=== PATIENT | female | born 1940 | race Caucasian/White ===

== ENCOUNTER 2019-01-19 09:20 | Emergency (ER) | payer OTHER ==
[2019-01-19 10:28] LABS: Absolute Lymphocytes (CBC) 1.2 K/uL (0.7-4.9); Basophils % 0.8 % (0-1.3); Eosinophils % 2.9 % (0-4.4); Hematocrit 46.6 % (36.0-45.0); Lymphocytes % 25.5 % (15.3-44.8); Monocytes % 10.2 % (3.3-12.3); RBC Red Blood Cell Count 4.89 M/uL (3.86-4.86)
[2019-01-19 10:43] LABS: Potassium 4.3 mmol/L (3.5-5.1)
[2019-01-19] MEDS ORDERED: MORPHINE 4 MG/ML SYR ONE (10:43)
[2019-01-19] MEDS ORDERED: ONDANSETRON 4 MG/2 ML VIAL ONE (10:43)
--- NOTE | 2019-01-19 11:07 | ER ---
Nurse's Notes [facility] Name: Loreta Whitaker Age: 78 yrs Sex: Female : 1940 Arrival Date: 01/19/2019 Time: 09:24 Bed 5 Private MD: Harvinder Dowling V Diagnosis: Umbilical hernia Presentation: 01/19 09:45 Onset of symptoms was January 19, 2019. Risk Assessment: Do you want to hurt yourself or ph someone else? Patient reports no desire to harm self or others. Initial Sepsis Screen: Does the patient meet any 2 criteria? No. Patient's initial sepsis screen is negative. Does the patient have a suspected source of infection? No. Patient's initial sepsis screen is negative. Care prior to arrival: None. 09:45 Acuity: LATOYA 3 ph 09:47 Presenting complaint: Patient states: pain radiating across lower abdomen X 10 days, iw feels a knot in mid abdomen. Transition of care: patient was not received from another setting of care. Onset of symptoms was January 12, 2019. Risk Assessment: Do you want to hurt yourself or someone else? Patient reports no desire to harm self or others. Initial Sepsis Screen: Does the patient meet any 2 criteria? No. Patient's initial sepsis screen is negative. Does the patient have a suspected source of infection? No. Patient's initial sepsis screen is negative. Care prior to arrival: None. 09:47 Method Of Arrival: Ambulatory iw 09:47 Acuity: LATOYA 3 iw Historical: - Allergies: 09:44 No Known Allergies; ph - Home Meds: 09:49 Synthroid Oral once daily [Active]; trazodone 100 mg Oral tab nightly [Active]; iw losartan 25 mg oral tab 1 tab once daily [Active]; - PMHx: 09:44 Hypertension; Hypothyroidism; ph 09:49 Diverticulitis; iw - PSHx: 09:49 Cholecystectomy; Knee surgery; colon resection; iw - Immunization history:: Adult Immunizations unknown. - Social history:: Smoking status: Patient/guardian denies using tobacco. - Ebola Screening: : No symptoms or risks identified at this time. Screenin:45 Abuse screen: Denies threats or abuse. Denies injuries from another. Nutritional ph screening: No deficits noted. Tuberculosis screening: No symptoms or risk factors identified. Fall Risk None identified. Assessment: 09:40 General: Appears in no apparent distress. comfortable, obese, Behavior is calm, ph cooperative, appropriate for age, Denies fever, feeling ill. Pain: Complains of pain in umbilical area. Neuro: Level of Consciousness is awake, alert, obeys commands, Oriented to person, place, time, situation. Cardiovascular: Capillary refill < 3 seconds in bilateral fingers Patient's skin is warm and dry. Respiratory: Airway is patent Respiratory effort is even, unlabored. GI: Abdomen is non-distended, obese, Bowel sounds present X 4 quads. Abd is soft X 4 quads Reports lower abdominal pain, Patient currently denies diarrhea, nausea, vomiting. : No signs and/or symptoms were reported regarding the genitourinary system. Derm: Skin is intact, is healthy with good turgor, Skin is pink, warm \T\ dry. Musculoskeletal: Circulation, motion, and sensation intact. Range of motion: intact in all extremities. 09:48 Reassessment: KAMERON Zhao at bedside to reduce hernia, successful reduction, pt iw tolerated well. 11:26 Reassessment: Patient appears in no apparent distress at this time. Patient and/or ph family updated on plan of care and expected duration. Pain level reassessed. Patient is alert, oriented x 3, equal unlabored respirations, skin warm/dry/pink. Pt d/c w/ abdominal binder in place, instructed to follow up w/ surgeon. Vital Signs: 09:43 BP 153 / 83; Pulse 64; Resp 18; Temp 98.2(TE); Pulse Ox 99% on R/A; Weight 111.13 kg; iw Height 5 ft. 6 in. (167.64 cm); Pain 6/10; 11:00 BP 163 / 78; Pulse 62; Resp 18; Temp 98.0; Pulse Ox 99% on R/A; ph 09:43 Body Mass Index 39.54 (111.13 kg, 167.64 cm) iw ED Course: 09:24 Patient arrived in ED. mr 09:24 Harvinder Dowling MD is Private Physician. mr 09:36 [facility]. kb 09:36 Kranthi Wolff MD is Attending Physician. kb 09:39 Loreta Simons, RN is Primary Nurse. ph 09:48 Triage completed. iw 09:48 Arm band placed on Patient placed in an exam room, on a stretcher. ph 09:48 Patient has correct armband on for positive identification. Placed in gown. Bed in low ph position. Call light in reach. Side rails up X 1. Pulse ox on. NIBP on. Door closed. Noise minimized. Warm blanket given. Head of bed elevated. 09:54 Initial lab(s) drawn, by me, sent to lab. Inserted saline lock: 20 gauge in right dh3 antecubital area, using aseptic technique. Blood collected. 11:01 Harvinder Dowling MD is Referral Physician. kb 11:01 Orlin Dailey MD is Referral Physician. kb 11:15 No provider procedures requiring assistance completed. IV discontinued, intact, ph bleeding controlled, No redness/swelling at site. Pressure dressing applied. Administered Medications: 10:36 Drug: Zofran 4 mg Route: IVP; Site: right antecubital; ph 11:01 Follow up: Response: No adverse reaction ph 10:39 Drug: morphine 4 mg Route: IVP; Site: right antecubital; ph 11:01 Follow up: Response: No adverse reaction; Pain is decreased ph 11:02 Not Given (pt would rather increase water intake): NS 0.9% 500 ml IV at bolus continuouskb Outcome: 11:01 Discharge ordered by MD. kb 11:27 Patient left the ED. ph 11:27 Discharged to home ambulatory, with friend. ph 11:27 Condition: good 11:27 Discharge instructions given to patient, Instructed on discharge instructions, follow up and referral plans. Demonstrated understanding of instructions, follow-up care. Signatures: Cece Bal, BENCH MOLDERAmandaC BENCH MOLDER-Natalie Espinosa Irene, RN SCOTTY Loreta Simons RN RN Carolyn Padilla [facility] Corrections: (The following items were deleted from the chart) 09:50 09:43 BP 153 / 83; Pulse 64bpm; Resp 20bpm; Pulse Ox 99% RA; ph iw
--- NOTE | 2019-01-19 11:10 | EDPHYS ---
Physician Documentation [facility] Name: Loreta Whitaker Age: 78 yrs Sex: Female : 1940 Arrival Date: 01/19/2019 Time: 09:24 Bed 5 Private MD: Harvinder Dowling V ED Physician Kranthi Wolff HPI: 01/19 10:02 This 78 yrs old Female presents to ER via Ambulatory with complaints of kb Abdominal Pain. 10:02 The patient presents with abdominal pain in the lower abdomen. Onset: The kb symptoms/episode began/occurred 2 week(s) ago. The symptoms do not radiate. Associated signs and symptoms: none. The symptoms are described as constant. Modifying factors: The symptoms are alleviated by nothing, the symptoms are aggravated by pressure. Severity of pain: At its worst the pain was moderate in the emergency department the pain is unchanged. The patient has not experienced similar symptoms in the past. The patient has not recently seen a physician. Pt reports right lower abd pain that started 1.5-2 weeks ago. States the pain is now across entire lower abd and she developed a ball in the center of her abd. States she has not had that before. Historical: - Allergies: 09:44 No Known Allergies; ph - Home Meds: 09:49 Synthroid Oral once daily [Active]; trazodone 100 mg Oral tab nightly [Active]; iw losartan 25 mg oral tab 1 tab once daily [Active]; - PMHx: 09:44 Hypertension; Hypothyroidism; ph 09:49 Diverticulitis; iw - PSHx: 09:49 Cholecystectomy; Knee surgery; colon resection; iw - Immunization history:: Adult Immunizations unknown. - Social history:: Smoking status: Patient/guardian denies using tobacco. - Ebola Screening: : No symptoms or risks identified at this time. ROS: 10:01 Constitutional: Negative for fever, chills, and weight loss, Cardiovascular: Negative kb for chest pain, palpitations, and edema, Respiratory: Negative for shortness of breath, cough, wheezing, and pleuritic chest pain, Back: Negative for injury and pain, MS/Extremity: Negative for injury and deformity, Skin: Negative for injury, rash, and discoloration, Neuro: Negative for headache, weakness, numbness, tingling, and seizure. 10:01 Abdomen/GI: Positive for abdominal pain, "ball in abd". Exam: 10:00 Constitutional: This is a well developed, well nourished patient who is awake, alert, kb and in no acute distress. Head/Face: Normocephalic, atraumatic. ENT: Nares patent. No nasal discharge, no septal abnormalities noted. Tympanic membranes are normal and external auditory canals are clear. Oropharynx with no redness, swelling, or masses, exudates, or evidence of obstruction, uvula midline. Mucous membranes moist. Neck: Trachea midline, no thyromegaly or masses palpated, and no cervical lymphadenopathy. Supple, full range of motion without nuchal rigidity, or vertebral point tenderness. No Meningismus. Chest/axilla: Normal chest wall appearance and motion. Nontender with no deformity. No lesions are appreciated. Cardiovascular: Regular rate and rhythm with a normal S1 and S2. No gallops, murmurs, or rubs. Normal PMI, no JVD. No pulse deficits. Respiratory: Lungs have equal breath sounds bilaterally, clear to auscultation and percussion. No rales, rhonchi or wheezes noted. No increased work of breathing, no retractions or nasal flaring. Back: No spinal tenderness. No costovertebral tenderness. Full range of motion. Skin: Warm, dry with normal turgor. Normal color with no rashes, no lesions, and no evidence of cellulitis. MS/ Extremity: Pulses equal, no cyanosis. Neurovascular intact. Full, normal range of motion. Neuro: Awake and alert, GCS 15, oriented to person, place, time, and situation. Cranial nerves II-XII grossly intact. Motor strength 5/5 in all extremities. Sensory grossly intact. Cerebellar exam normal. Normal gait. 10:00 Abdomen/GI: Inspection: abdomen appears normal, Bowel sounds: normal, in all quadrants, Palpation: soft, in all quadrants, mild abdominal tenderness, in the right lower quadrant and left lower quadrant, moderate abdominal tenderness, in the umbilical area, Hernia: noted in the umbilical area, tenderness, that is moderate, reduced easily. Vital Signs: 09:43 BP 153 / 83; Pulse 64; Resp 18; Temp 98.2(TE); Pulse Ox 99% on R/A; Weight 111.13 kg; iw Height 5 ft. 6 in. (167.64 cm); Pain 6/10; 11:00 BP 163 / 78; Pulse 62; Resp 18; Temp 98.0; Pulse Ox 99% on R/A; ph 09:43 Body Mass Index 39.54 (111.13 kg, 167.64 cm) iw MDM: 09:36 Patient medically screened. kb 10:01 Data reviewed: vital signs, nurses notes. Data interpreted: Pulse oximetry: on room air kb is 99 %. Interpretation: normal. 10:04 ED course: Hernia reduced during exam. Discussed findings and causes with pt. States kb she has been lifting her 's wheelchair a lot lately. Pt educated to splint the area when she lifts anything and to avoid it when able. Pt reports decrease in pain after reduction. does not want pain medication at this time. 10:58 Counseling: I had a detailed discussion with the patient and/or guardian regarding: the kb historical points, exam findings, and any diagnostic results supporting the discharge/admit diagnosis, lab results, the need for outpatient follow up, a general surgeon, to return to the emergency department if symptoms worsen or persist or if there are any questions or concerns that arise at home. 01/19 09:42 Order name: Basic Metabolic Panel; Complete Time: 10:58 kb 01/19 09:42 Order name: CBC with Diff; Complete Time: 10:44 kb 01/19 09:43 Order name: Lactate; Complete Time: 10:58 kb 01/19 09:42 Order name: IV Saline Lock; Complete Time: 09:58 kb 01/19 09:42 Order name: Labs collected and sent; Complete Time: 09:58 kb 01/19 10:25 Order name: Misc. Order: abdominal binder; Complete Time: 11:17 kb Administered Medications: 10:36 Drug: Zofran 4 mg Route: IVP; Site: right antecubital; ph 11:01 Follow up: Response: No adverse reaction ph 10:39 Drug: morphine 4 mg Route: IVP; Site: right antecubital; ph 11:01 Follow up: Response: No adverse reaction; Pain is decreased ph 11:02 Not Given (pt would rather increase water intake): NS 0.9% 500 ml IV at bolus continuouskb Disposition: 01/19/19 11:01 Discharged to Home. Impression: Umbilical hernia. - Condition is Stable. - Discharge Instructions: Hernia, Adult, [id number]. - Medication Reconciliation Form, Thank You Letter, Antibiotic Education, Prescription Opioid Use form. - Follow up: Harvinder Dowling; When: 2 - 3 days; Reason: Recheck today's complaints, Continuance of care, Re-evaluation by your physician. Follow up: Dr. Orlin Dailey; When: 2 - 3 days; Reason: Recheck today's complaints, Continuance of care, Re-evaluation by your physician. Addendum: 01/24/2019 16:53 Co-signature as Attending Physician, Kranthi Wolff MD I agree with the assessment and c bailey plan of care. Signatures: Dispatcher [employer] [facility] Cece Bal, SLIP LASTER-C SLIP LASTER-Kranthi Olea MD MD cha Williams, Irene, RN RN iw Loreta Simons RN RN ph Corrections: (The following items were deleted from the chart) 01/19 09:51 09:45 Abdomen Pelvis W Con+CT.RAD.BRZ ordered. [facility] 10:05 10:01 Counseling: I had a detailed discussion with the patient and/or guardian regarding: the historical points, exam findings, and any diagnostic results supporting the discharge/admit diagnosis, lab results, the need for outpatient follow up, a general surgeon, to return to the emergency department if symptoms worsen or persist or if there are any questions or concerns that arise at home, kb 11:27 11:01 01/19/2019 11:01 Discharged to Home. Impression: Umbilical hernia. Condition is ph Stable. Discharge Instructions: Hernia, Adult, [id number]. Forms are Medication Reconciliation Form, Thank You Letter, Antibiotic Education, Prescription Opioid Use. Follow up: Harvinder Dowling; When: 2 - 3 days; Reason: Recheck today's complaints, Continuance of care, Re-evaluation by your physician. Follow up: Dr. Orlin Dailey; When: 2 - 3 days; Reason: Recheck today's complaints, Continuance of care, Re-evaluation by your physician. kb
[2019-01-19 11:48] VITALS: BP 153/83; TEMP 98.2; O2SAT 99
== END 2019-01-19 11:27 | disposition home or self-care (01) ==
LOC: ER 09:20
DX: K42.9 Umbilical hernia without obstruction or gangrene (principal); I10 Essential (primary) hypertension; E03.9 Hypothyroidism, unspecified
CPT/HCPCS: 85025; 80048; 36415; 83605; 96375; 96374; 99284; J2405

== ENCOUNTER 2022-07-14 20:02 | Emergency (ER) | payer OTHER ==
--- NOTE | 2022-07-14 20:53 | ER ---
Nurse's Notes [facility] Name: Loreta Whitaker Age: 82 yrs Sex: Female : 1940 Arrival Date: 07/14/2022 Time: 20:11 Bed Waiting Private MD: Diagnosis: Presentation: 07/14 20:52 Note registration states pt left to "go across the street" with spouse. bb ED Course: 20:11 Patient arrived in ED. 20:51 Patient's name was called from ER lobby. No response. Unable to locate patient. Will bb disposition as left without being seen by a provider. Administered Medications: No medications were administered Outcome: 20:53 Patient left the ED. bb Signatures: Kimberly Henderson RN RN bb Nydia Turpin
== END 2022-07-14 20:53 | disposition left against medical advice (07) ==
LOC: ER 20:02
DX: Z02.9 Encounter for administrative examinations, unspecified (principal)

== ENCOUNTER 2023-08-10 16:57 | Inpatient (IN) | payer OTHER ==
[2023-08-10 17:48] LABS: Absolute Lymphocytes (CBC) 1.2 K/uL (0.7-4.9); Hematocrit 43.3 % (36.0-45.0); Lymphocytes % 21.2 % (15.3-44.8); MCV 95.7 fL (80-100); MPV 7.9 fL (7.6-11.3); Platelets 218 thou/uL (152-406); RBC Red Blood Cell Count 4.52 M/uL (3.86-4.86)
--- NOTE | 2023-08-10 18:00 | EDPHYS ---
Physician Documentation [facility] Name: Loreta Whitaker Age: 83 yrs Sex: Female : 1940 Arrival Date: 08/10/2023 Time: 16:57 Bed 13 Private MD: ED Physician Eugenio Canales HPI: 08/10 17:43 This 83 yrs old Female presents to ER via Ambulatory with complaints of Sent By DrMarcin fajardo 17:43 The patient presents with a history of irregular heart beat. Context: The symptoms rn occur at rest, with exercise. Onset: The symptoms/episode began/occurred at an unknown time. Modifying factors: The symptoms are aggravated by nothing. The symptoms are alleviated by nothing. Severity of symptoms: At their worst the symptoms were moderate in the emergency department the symptoms are unchanged. The patient has experienced similar episodes in the past. Patient states seen by Dr. Han and sent in for admission and heart cath. Patient reports irregular heartbeat for some time now with unknown diagnosis. States has had a workup by her strategic development manager and still unknown reason. Patient states slow and irregular and at times feels lightheaded and dizzy. No chest pain. No changes in medication.. Historical: - Allergies: 17:06 No Known Allergies; ap3 - PMHx: 17:06 Diverticulitis; Hypertension; Hypothyroidism; "irregular heart beat" (Hypothyroidism); ap3 - Immunization history:: Client reports receiving the 2nd dose of the Covid vaccine, Flu vaccine is up to date. - Social history:: Smoking status: Patient denies any tobacco usage or history of. - Family history:: not pertinent. - Hospitalizations: : No recent hospitalization is reported. ROS: 17:43 Constitutional: Negative for fever, chills, and weight loss, Eyes: Negative for injury, rn pain, redness, and discharge, Neck: Negative for injury, pain, and swelling, Cardiovascular: Positive for palpitations and slow heart rate Respiratory: Negative for shortness of breath, cough, wheezing, and pleuritic chest pain, Abdomen/GI: Negative for abdominal pain, nausea, vomiting, diarrhea, and constipation, Back: Negative for injury and pain, MS/Extremity: Negative for injury and deformity, Skin: Negative for injury, rash, and discoloration, Neuro: Negative for headache, weakness, numbness, tingling, and seizure, Exam: 17:43 Constitutional: This is a well developed, well nourished patient who is awake, alert, rn and in no acute distress. Head/Face: Normocephalic, atraumatic. Cardiovascular: Bradycardic, irregular. No pulse deficits Respiratory: Speaking full sentences, unlabored. No increased work of breathing, no retractions or nasal flaring. Abdomen/GI: Soft, non-tender Vital Signs: 17:08 BP 164 / 93; Pulse 74; Resp 17; Temp 98.8; Pulse Ox 97% ; Weight 117.93 kg; Height 5 ap3 ft. 7 in. ; 18:00 BP 170 / 84; Pulse 74; Resp 18; Pulse Ox 98% on R/A; mb9 17:08 Body Mass Index 40.72 (117.93 kg, 170.18 cm) ap3 MDM: 17:04 Patient medically screened. rn 17:58 Differential diagnosis: arrythmia, dehydration, stress disorder, CAD. Data reviewed: rn vital signs, nurses notes, and as a result, I will admit patient. Care significantly affected by the following chronic conditions: Hypertension. Counseling: I had a detailed discussion with the patient and/or guardian regarding the historical points, exam findings, and any diagnostic results supporting the discharge/admit diagnosis, the need for further work-up and treatment in the hospital. 08/10 17:19 Order name: Basic Metabolic Panel; Complete Time: 18:32 rn 08/10 17:19 Order name: CBC with Diff; Complete Time: 18: rn 08/10 17:19 Order name: NT PRO-BNP; Complete Time: 18: rn 08/10 17:19 Order name: PT-INR; Complete Time: 18: rn 08/10 17:19 Order name: Troponin HS; Complete Time: 18:32 rn 08/10 21:32 Order name: Troponin High Sensitivity; Complete Time: 09:08 EDCT 08/11 02:18 Order name: Troponin High Sensitivity; Complete Time: 09:08 EDCT 08/11 05:25 Order name: CBC with Automated Diff; Complete Time: 09:08 EDCT 08/11 05:54 Order name: Basic Metabolic Panel; Complete Time: 09:08 EDCT 08/10 17:19 Order name: XRAY Chest (1 view) rn 08/10 18:29 Order name: RAD; Complete Time: 18:32 EDMS 08/10 17:19 Order name: EKG; Complete Time: 17:20 rn 08/10 18:03 Order name: CONS Physician Consult EDCT 08/10 17:19 Order name: Cardiac monitoring; Complete Time: 17:26 rn 08/10 17:19 Order name: EKG - Nurse/Tech; Complete Time: 17:26 rn 08/10 17:19 Order name: IV Saline Lock; Complete Time: 17:31 rn 08/10 17:19 Order name: Labs collected and sent; Complete Time: 17:31 rn 08/10 17:19 Order name: O2 Per Protocol; Complete Time: 17:26 rn 08/10 17:19 Order name: O2 Sat Monitoring; Complete Time: 17:26 rn Administered Medications: No medications were administered Disposition Summary: 08/10/23 17:59 Hospitalization Ordered Notes: Hospitalization Status: Observation rn Provider: Harvinder Dowling rn Condition: Stable rn Problem: an ongoing problem rn Symptoms: are unchanged rn Bed/Room Type: Standard rn Location: Telemetry/MedSurg (observation)(08/11/23 13:57) em1 Room Assignment: [facility](08/11/23 13:57) em1 Diagnosis - Bradycardia, unspecified rn - Palpitations rn Forms: - Medication Reconciliation Form rn - SBAR form rn - Leadership Thank You Letter rn Signatures: Dispatcher [employer] [facility] Eugenio Canales MD MD rn Martinez, Eric em1 Lesley Ferguson RN RN [id number] Bailey Ray RN RN vc1 Corrections: (The following items were deleted from the chart) 21:53 17:59 Telemetry/MedSurg (observation) rn vc1 21:53 17:59 rn vc1 08/11 13:57 08/10 21:53 [facility] ER HOLD vc1 em1 08/11 13:57 08/10 21:53 ERHOLD- vc1 em1
--- NOTE | 2023-08-10 18:00 | ER ---
Nurse's Notes [facility] Name: Loreta Whitaker Age: 83 yrs Sex: Female : 1940 Arrival Date: 08/10/2023 Time: 16:57 Bed 13 Private MD: Diagnosis: Bradycardia, unspecified;Palpitations Presentation: 08/10 17:05 Chief complaint: Patient states: she was sent by her PCP in order for her to be ap3 admitted to receive a heart cath. patient denies any chest pain at this time. Coronavirus screen: At this time, the client does not indicate any symptoms associated with coronavirus-19. Ebola Screen: No symptoms or risks identified at this time. Initial Sepsis Screen: Does the patient meet any 2 criteria? No. Patient's initial sepsis screen is negative. Does the patient have a suspected source of infection? No. Patient's initial sepsis screen is negative. Risk Assessment: Do you want to hurt yourself or someone else? Patient reports no desire to harm self or others. Onset of symptoms is unknown. 17:05 Method Of Arrival: Ambulatory ap3 17:08 Acuity: LATOYA 3 ap3 Triage Assessment: 17:07 General: Appears in no apparent distress. Behavior is calm, cooperative, appropriate ap3 for age. Pain: Denies pain. Neuro: Level of Consciousness is awake, alert, obeys commands, Oriented to person, place, time, situation, Appropriate for age. Cardiovascular: Patient's skin is warm and dry. Respiratory: Airway is patent Respiratory effort is even, unlabored, Respiratory pattern is regular, symmetrical. Historical: - Allergies: 17:06 No Known Allergies; ap3 - PMHx: 17:06 Diverticulitis; Hypertension; Hypothyroidism; "irregular heart beat" (Hypothyroidism); ap3 - Immunization history:: Client reports receiving the 2nd dose of the Covid vaccine, Flu vaccine is up to date. - Social history:: Smoking status: Patient denies any tobacco usage or history of. - Family history:: not pertinent. - Hospitalizations: : No recent hospitalization is reported. Screenin:08 Abuse screen: Denies threats or abuse. Nutritional screening: No deficits noted. ap3 Tuberculosis screening: No symptoms or risk factors identified. 17:24 [facility] ED Fall Risk Assessment (Adult) History of falling in the last 3 months, mb9 including since admission No falls in past 3 months (0 pts) Confusion or Disorientation No (0 pts) Intoxicated or Sedated No (0 pts) Impaired Gait No (0 pts) Mobility Assist Device Used No (0 pt) Altered Elimination No (0 pt) Score/Fall Risk Level 0 - 2 = Low Risk Oriented to surroundings, Maintained a safe environment, Educated pt \\T\\ family on fall prevention, incl call for assistance when getting out of bed. Assessment: 17:25 General: Appears in no apparent distress. Behavior is calm, cooperative. Pain: Denies mb9 pain. Neuro: Pham Agitation-Sedation Scale (RASS): 0 - Alert and Calm Level of Consciousness is awake, alert, obeys commands, Oriented to person, place, time, situation, Appropriate for age. Cardiovascular: Denies chest pain, Heart tones S1 S2 present Patient's skin is warm and dry. Respiratory: Reports shortness of breath at rest Airway is patent Respiratory effort is even, unlabored, Respiratory pattern is regular, symmetrical, Breath sounds are clear bilaterally. GI: Abdomen is round non-distended, Bowel sounds present X 4 quads. Abd is soft and non tender X 4 quads. : No signs and/or symptoms were reported regarding the genitourinary system. EENT: No signs and/or symptoms were reported regarding the EENT system. Derm: Skin is pink, warm \\T\\ dry. Musculoskeletal: Range of motion: intact in all extremities. 18:28 Reassessment: No changes from previously documented assessment. Patient and/or family mb9 updated on plan of care and expected duration. Pain level reassessed. Patient is alert, oriented x 3, equal unlabored respirations, skin warm/dry/pink. Vital Signs: 17:08 BP 164 / 93; Pulse 74; Resp 17; Temp 98.8; Pulse Ox 97% ; Weight 117.93 kg; Height 5 ap3 ft. 7 in. ; 18:00 BP 170 / 84; Pulse 74; Resp 18; Pulse Ox 98% on R/A; mb9 17:08 Body Mass Index 40.72 (117.93 kg, 170.18 cm) ap3 ED Course: 17:02 Patient arrived in ED. mg5 17:04 Eugenio Canales MD is Attending Physician. rn 17:08 Triage completed. ap3 17:08 Arm band placed on right wrist. ap3 17:24 Natalie Yan, RN is Primary Nurse. mb9 17:24 Placed in gown. Bed in low position. Call light in reach. Side rails up X 1. Client mb9 placed on continuous cardiac and pulse oximetry monitoring. NIBP monitoring applied. nurse monitoring on. Door closed. Noise minimized. 17:24 No provider procedures requiring assistance completed. EKG done, by ED staff, reviewed mb9 by Eugenio Canales MD. 17:36 Troponin HS Sent. as6 17:36 PT-INR Sent. as6 17:36 NT PRO-BNP Sent. as6 17:36 CBC with Diff Sent. as6 17:36 Basic Metabolic Panel Sent. as6 17:36 Inserted saline lock: 20 gauge in left antecubital area, using aseptic technique. Blood as6 collected. 17:59 Harvinder Dowling MD is Hospitalizing Provider. rn 19:02 Report given to SCOTTY Em. mb9 08/11 14:33 Provided Education on: POC. Verbalized understanding.. me1 14:34 Patient admitted, IV remains in place. me1 Administered Medications: No medications were administered Medication: 08/10 17:24 VIS not applicable for this client. mb9 Outcome: 17:59 Decision to Hospitalize by Provider. rn 08/11 14:34 Admitted to Med/surg accompanied by tech, via wheelchair, room 231, with chart, Report me1 called to SCOTTY Bledsoe Condition: stable Instructed on the need for admit, 15:27 Patient left the ED. me1 Signatures: Eugenio Canales MD MD rn Prokisch, Amanda, RN RN ap3 Aidan Arreola RN RN as6 Natalie Yan, RN RN mb9 Li Coleman RN RN me1 Janel Cast mg5 Corrections: (The following items were deleted from the chart) 08/10 17:41 17:25 Respiratory: Airway is patent Respiratory effort is even, unlabored, Respiratory mb9 pattern is regular, symmetrical, Breath sounds are clear bilaterally. mb9 18:28 18:00 BP 170 / 084; Pulse 74bpm; Resp 18bpm; Pulse Ox 98% RA; mb9 mb9
[2023-08-10 18:01] LABS: Protime INR 1.01
[2023-08-10 18:12] LABS: Troponin High Sensitivity 12.2 pg/mL (<58.9)
--- NOTE | 2023-08-10 18:28 | RAD REPORT ---
EXAM DESCRIPTION: RAD - Chest Single View - 08/10/2023 6:23 pm CLINICAL HISTORY: PALPITATIONS Chest pain. COMPARISON: Chest Pa And Lat (2 Views) dated 06/06/2023; CHEST PA AND LAT 2 VIEW dated 03/18/2015; [facility] SINGLE VIEW dated 08/09/2011; CHEST PA AND LAT 2 VIEW dated 04/15/2009 FINDINGS: Portable technique limits examination quality. Mild interstitial pulmonary edema. The heart is enlarged. No displaced fractures. IMPRESSION: Mild CHF.
[2023-08-10 20:02] VITALS: BMI 40.5
[2023-08-11 05:18] LABS: Absolute Lymphocytes (CBC) 1.1 K/uL (0.7-4.9); Hematocrit 41.6 % (36.0-45.0); Lymphocytes % 21.3 % (15.3-44.8); MCV 95.1 fL (80-100); Platelets 201 thou/uL (152-406); RBC Red Blood Cell Count 4.37 M/uL (3.86-4.86)
[2023-08-11 05:54] LABS: Potassium 4.2 mEq/L (3.5-5.1)
--- NOTE | 2023-08-11 16:27 | EKG ---
Test Date: 2023-08-10 Test Time: 17:19:52 Job Honer: ALP MEASUREMENT RESULTS: Intervals: Rate: 79 NH: 158 QRSD: 94 QT: 408 QTc: 467 [place]: P: 60 NH: 158 QRS: -4 T: 58 INTERPRETIVE STATEMENTS: Sinus rhythm with frequent premature ventricular complexes in a pattern of bigeminy Low voltage QRS Septal infarct, age undetermined Abnormal ECG Compared to ECG 03/18/2015 12:23:23 Ventricular premature complex(es) now present Low QRS voltage now present Myocardial infarct finding still present Electronically Signed On 08-11-23 16:25:41 BULK MAIL CLERK by Shorty Han
[2023-08-11] MEDS: carvediloL 6.25 MG TAB PO SCH (17:18)
[2023-08-11] MEDS: ENOXAPARIN 40 MG/0.4 ML SQ SCH (17:19)
--- NOTE | 2023-08-11 19:54 | CON ---
Date of Consultation: 08/11/2023 History Of Present Illness: This is an 83-year-old female, who has been evaluated in my office for s hortness of breath on exertion and irregular heart beat. She had a stress test that was mildly abnor mal and she does have significant shortness of breath on exertion with chest tightness, but no carlos chest pain. She presented to the emergency room yesterday evening. I evaluated her by bedside and s he appears to be stable at this movement. No active chest pain and no shortness of breath at rest, b ut she does have dyspnea on exertion. Past Medical History: Hypertension, hypothyroidism. Medications: Refer reconciliation sheet for detailed list. Allergies: NO KNOWN DRUG ALLERGIES. Family History: No premature coronary artery disease or cancer. Social History: She does not smoke or drink. Does not use any drugs. Review of Systems: All systems reviewed and they are negative except as mentioned in the HPI. Physical Examination: Vital Signs: Reviewed. Head and Neck: Pupils are equal, reactive to light. Intact eye movements. No JVD. No cervical lym phadenopathy. Neck is supple. Thyroid is not enlarged. Lungs: Clear to auscultation bilaterally. No rhonchi, rales, or crackles. No accessory muscle use. Heart: Regular rate and rhythm. No extra sounds. Abdomen: Soft, nontender. Bowel sounds positive. No organomegaly. No masses or hernia. No rigidi ty or rebound. Extremities: No edema, clubbing, cyanosis. Intact pulses. Skin: No rash. Neurologic: Alert, awake, oriented x3. No acute focal deficits appreciated. Investigations: Troponins are negative. BUN 14, creatinine 0.93. NT-proBNP is 362 and hemoglobin i s 14.0. Assessment/recommendation: 1.Abnormal stress test with dyspnea on exertion and chest tightness. I recommend coronary angiogram and keep the patient n.p.o. past midnight. I will plan for it to be done in the morning tomorrow. 2.Hypertension. Blood pressure is borderline elevated. Resume home medications. Adjust further if needed. 3.Palpitations. We will admit and keep her on telemetry and to monitor for any arrhythmia. SR/MODL Voice ID: [id number] Report ID: [id number]
[2023-08-11] MEDS: TRAZODONE 50 MG TABLET PO SCH (20:27)
--- NOTE | 2023-08-11 21:54 | P.HP ---
Patient History Date of Service: 08/11/23 Reason for admission: DYSPNEA ON EXERSION History of Present Illness: DR. RUSSO ASKED HER TO COME TO ER FOR DYSPNEA ON EXERSION. SHE DENIES ANY CHEST PAIN BUT AFTER A FEW STEPS SHE GETS DYSPNEA. Allergies No Known Allergies Allergy (Verified 06/06/23 09:09) Home medications list reviewed: Yes Home Medications: Losartan Potassium [Cozaar] 1 tab PO DAILY 03/18/15 Trazodone HCl [Desyrel] 1 tab PO DAILY 03/18/15 Vortioxetine Hydrobromide [Brintellix] 10 mg PO DAILY 08/11/23 - Past Medical/Surgical History Has patient received pneumonia vaccine in the past: Yes Diabetic: No -: hypothyroidism -: benign hypertension -: chest pain -: unstable angina -: cataract sx -: cholecystectomy - Social History Smoking Status: Never smoker Alcohol use: Yes CD- Drugs: No Caffeine use: Yes Place of Residence: Home Review of Systems 10-point ROS is otherwise unremarkable General: Weakness, Malaise Physical Examination - Vital Signs Temperature: 97 F Blood Pressure: 175/73 Pulse: 72 Respirations: 18 Pulse Ox (%): 93 - Physical Exam General: Mild distress HEENT: Atraumatic, PERRLA, Mucous membr. moist/pink, EOMI, Sclerae nonicteric Neck: Supple, 2+ carotid pulse no bruit, No LAD, Without JVD or thyroid abnormality Respiratory: Clear to auscultation bilaterally, Normal air movement Cardiovascular: Regular rate/rhythm, Normal S1 S2 Gastrointestinal: Normal bowel sounds, No tenderness Musculoskeletal: No tenderness Integumentary: No rashes Neurological: Normal gait, Normal speech, Normal strength at 5/5 x4 extr, Normal tone, Normal affect Lymphatics: No axilla or inguinal lymphadenopathy Assessment and Plan - Problems (Diagnosis) (1) Acute dyspnea Current Visit: Yes Status: Acute Plan: SHE NEEDS A CARDIAC CATH. DR. RUSSO WILL DO IN AM. MAY GO HOME AFTER THAT IF NEG LOVENOX SC DAILY ASA 81 MG DAILY. (2) Benign hypertension Onset Date: 03/19/15 Current Visit: No Status: Chronic Plan: ANXIETY ADDS TO HIGH NUMBERS HERE. SHE IS BETTER AT HOME. ADD COREG. (3) Hypothyroidism Onset Date: 03/19/15 Current Visit: No Status: Acute - Advance Directives Does patient have a Living Will: No Does patient have a Durable POA for Healthcare: No
[2023-08-12] MEDS ORDERED: LIDOCAINE 1% 20 ML MDV ONE (06:35)
[2023-08-12] MEDS ORDERED: HEPA 1000U/500MLS 2,000 UNIT/1,000 ML BAG IV ONE (06:35)
[2023-08-12] MEDS ORDERED: NA CHLORIDE 0.9% 500 ML ONE (06:36)
[2023-08-12] MEDS: carvediloL 6.25 MG TAB PO SCH ×2 (08:00→17:57)
[2023-08-12] MEDS ORDERED: MIDAZOLAM HCL 2 MG/2 ML INJ ONE (08:42)
[2023-08-12] MEDS ORDERED: VERAPAMIL HCL 10 MG/4 ML VIAL IV ONE (08:42)
[2023-08-12] MEDS ORDERED: FENTANYL CITR 100 MCG/2 ML ONE (08:42)
[2023-08-12] MEDS ORDERED: HEPARIN 10,000 UNIT/10 ML VIAL IV ONE (08:43)
[2023-08-12] MEDS ORDERED: ATROPINE SULF 1 MG/10 ML SYR IV ONE (08:43)
[2023-08-12] MEDS ORDERED: TICAGRELOR 90 MG TABLET PO ONE (08:43)
[2023-08-12] MEDS ORDERED: HEPARIN 5000 UNIT/ML 1 ML VIAL ONE (08:43)
[2023-08-12] MEDS ORDERED: CLOPIDOGREL 75 MG TABLET ONE (08:44)
[2023-08-12] MEDS ORDERED: ASPIRIN 325 MG TAB ONE (08:44)
[2023-08-12] MEDS: LOSARTAN POTASSIUM 50 MG TABLET PO SCH (09:00)
[2023-08-12] MEDS: VORTIOXETINE HYDROBROMIDE 10 MG PO SCH (09:00)
[2023-08-12] MEDS ORDERED: TRAZODONE 50 MG TABLET PO SCH (09:00)
[2023-08-12] MEDS ORDERED: AMIODARONE HCL 150 MG in D5W 100 ML IV ONE (16:20)
[2023-08-12] MEDS ORDERED: AMIODARONE HCL 900 MG in Dextrose 5%-Water 482 ML IV SCH (16:30)
[2023-08-12] MEDS: ENOXAPARIN 40 MG/0.4 ML SQ SCH (18:00)
[2023-08-12 18:21] VITALS: O2SAT 95
--- NOTE | 2023-08-12 18:33 | OP ---
Date of Procedure: 08/12/2023 Surgeon: SOY RUSSO Procedures Performed: 1.Selective coronary angiogram. 2.Left heart catheterization. Indication: Unstable angina. Access: Right radial artery 6-Northern Irish closed with TR band. Complications: None. Bleeding: Less than 20 mL. Description Of Procedure: After risks, benefits, alternatives were explained, patient agreed to proc edure and signed informed consent. Patient was brought into cardiac catheterization laboratory, prep ped and draped in the usual sterile fashion. Then I accessed right radial artery using pediatric bladimir ropuncture kit, placed 6-Northern Irish Slender sheath, and took a 5-Northern Irish [place] 4.0 catheter into the aorti c root, engaged left main and then in the right coronary artery, took standard views and the catheter was pushed over the wire to the LV, measured the LVEDP. Pullback did not record any gradient. Then I removed the catheter and the sheath, placed TR band with good hemostasis. Findings: 1.Left main; large and normal. 2.LAD is normal. Normal diagonal branches. 3.Left circumflex is normal. 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 5.LVEDP borderline elevated at 17 mmHg. Conclusion: 1.Normal coronary arteries. 2.Elevated LVEDP. Recommendation: Medical management. SR/MODL Voice ID: [id number] Report ID: [id number]
--- NOTE | 2023-08-12 19:37 | PN ---
Date of Progress Note: 08/12/2023 Subjective: Seen by bedside. She is status post coronary angiogram. No significant coronary artery disease is seen and she does have frequent PVCs and bigeminy. Review of Systems: History of on and off chest pain. No nausea, vomiting, or diarrhea. No abdominal pain. No dysuria, polyuria, or urinary urgency. All other systems reviewed, they were negative. Objective: Vital Signs: Reviewed. Head and Neck: Pupils are equal, reactive to light. Intact eye movements. No JVD. No cervical lym phadenopathy. Neck is supple. Thyroid is not enlarged. Lungs: Clear to auscultation bilaterally. No rhonchi, wheezing, or crackles. No accessory muscle u se. Heart: Regular rate and rhythm. No extra sounds. Abdomen: Soft, nontender. Bowel sounds positive. No organomegaly. No masses or hernia. No rigidi ty or rebound. Extremities: No edema, clubbing, cyanosis. Intact pulses. Skin: No rash or nodule. Neurologic: Alert, awake, oriented x3. No acute focal deficits appreciated. Lymph Nodes: No cervical or axillary lymphadenopathy. Investigations: Labs were reviewed. Assessment And Plan: 1.Chest pain. She is status post coronary angiogram and no significant coronary artery disease is f ound. Patient was reassured. 2.Frequent PVCs and bigeminy since short run of ventricular tachycardia. This is nonischemic. Star t her on amiodarone to load IV over the next 24 hours 150 mg over 10 minutes and then 1 mg/minute for 6 hours, and then 0.5 mg/minute for 16 hours, and then to switch to oral amiodarone 200 mg twice a d ay and once the amiodarone load is completed and if the PVCs have resolved, then she can be released hopefully within the next 24 hours. SR/MODL Voice ID: [id number] Report ID: [id number]
[2023-08-12] MEDS: TRAZODONE 50 MG TABLET PO SCH (21:07)
[2023-08-13] MEDS: carvediloL 6.25 MG TAB PO SCH (08:00)
[2023-08-13] MEDS: VORTIOXETINE HYDROBROMIDE 10 MG PO SCH (09:00)
[2023-08-13] MEDS: LOSARTAN POTASSIUM 50 MG TABLET PO SCH (09:00)
[2023-08-13] MEDS ORDERED: AMIODARONE HCL 200 MG TAB PO SCH (15:03)
[2023-08-13 17:00] VITALS: BP 125/66; TEMP 98.3
== END 2023-08-13 17:57 | disposition home or self-care (01) | DRG 287 ==
LOC: ER 16:57 → ERHOLD 18:01 → 2ND 08-11 14:34 → OBSVTOIN 08-12 11:17
PROVIDERS: ADMIT Internal Medicine; ATTEND Internal Medicine
PROC: 4A023N7 Measurement of Cardiac Sampling and Pressure, Left Heart, Percutaneous Approach (ICD-10-PCS; principal; 2023-08-12)
PROC: B2111ZZ Fluoroscopy of Multiple Coronary Arteries using Low Osmolar Contrast (ICD-10-PCS; 2023-08-12)
DX: I47.20 Ventricular tachycardia, unspecified (principal); I10 Essential (primary) hypertension; E03.9 Hypothyroidism, unspecified; F41.9 Anxiety disorder, unspecified; I49.3 Ventricular premature depolarization; Z90.49 Acquired absence of other specified parts of digestive tract; Z79.899 Other long term (current) drug therapy
CPT/HCPCS: 36415; 71045; 76937; 80048; 83880; 84484; 85025; 85610; 93005; 93458; 99152; 99153; C1893; G0378; J0282; J0461; J1644; J1650; J2001; J2250; J3010; J7040; J7060; Q9966

== ENCOUNTER 2023-11-06 09:13 | Emergency (ER) | payer OTHER ==
[2023-11-06] MEDS ORDERED: HYDRALAZINE HCL 20 MG/ML VIAL ONE (09:45)
[2023-11-06 09:50] LABS: Absolute Eosinophils 0.1 K/uL (0-0.5); Absolute Lymphocytes (CBC) 0.9 K/uL (0.7-4.9); Absolute Monocytes 0.5 K/uL (0.1-1.3); Basophils % 0.9 % (0-1.3); Eosinophils % 2.7 % (0-4.4); Hemoglobin 14.6 g/dL (12.0-15.0); Lymphocytes % 20.4 % (15.3-44.8); MCH 32.2 pg (27.0-35.0); MCHC 33.1 g/dL (32.0-36.0); MCV 97.3 fL (80-100); Monocytes % 10.7 % (3.3-12.3); Neutrophils % 65.3 % (41.7-73.7); Nucleated Red Blood Cells % 0.2 % (0-0); Platelets 226 thou/uL (152-406); RBC Red Blood Cell Count 4.52 M/uL (3.86-4.86); Red Cell Distribution Width 14.2 % (12.1-15.2)
[2023-11-06 10:09] LABS: Anion Gap 6.2 mEq/L (5.0-15.0); Potassium 4.2 mEq/L (3.5-5.1); Troponin High Sensitivity 8.4 pg/mL (<58.9)
--- NOTE | 2023-11-06 10:59 | RAD REPORT ---
EXAM DESCRIPTION: RAD - Chest Single View - 11/06/2023 10:49 am CLINICAL HISTORY: htn COMPARISON: Chest Single View dated 08/10/2023; Chest Pa And Lat (2 Views) dated 06/06/2023; CHEST PA AND LAT 2 VIEW dated 03/18/2015; CHEST SINGLE VIEW dated 08/09/2011 FINDINGS: Lines: None. Lungs: No evidence of edema or pneumonia. Pleural: No significant pleural effusions or pneumothorax. Cardiac: The heart size is within normal limits. Mediastinum: Within normal limits. Bones: No acute fractures. Other: None IMPRESSION: No acute cardiopulmonary disease.
--- NOTE | 2023-11-06 11:09 | EDPHYS ---
Physician Documentation [facility] Name: Loreta Whitaker Age: 83 yrs Sex: Female : 1940 Arrival Date: 11/06/2023 Time: 09:13 Bed 6 Private MD: Harvinder Dowling V ED Physician Adan Peñaloza HPI: 11/05 09:30 This 83 yrs old Female presents to ER via Ambulatory with complaints of High Blood [facility] Pressure. 09:30 83-year-old female with a past medical history of hypertension and CHF presents to the [facility] ER for elevated blood pressure for the past week. She denies chest pain, but reports fatigue. She states that she had a heart cath that was clear 1 month ago. She reports that she has been on losartan 100 mg for many years and that it has controlled her blood pressure effectively. She states that Dr. Han put her on Lasix, but that she was taken off both that and her losartan due to dizziness. She states that as her blood pressure increased, Dr. Han put her back on losartan but only 25 mg. She denies chest pain, shortness of breath, dizziness, syncope, headache, or visual changes.. Historical: - Allergies: 09:20 No Known Allergies; ld1 - PMHx: 09:20 Diverticulitis; Hypertension; Hypothyroidism; ld1 - PSHx: 09:20 heart cath; ld1 - Immunization history:: Adult Immunizations up to date. - Infectious Disease History:: Denies. - Social history:: Smoking status: Patient denies any tobacco usage or history of. ROS: 09:50 Constitutional: Per HPI [facility] Exam: 09:39 Constitutional: This is a well developed, well nourished patient who is awake, alert, jh7 and in no acute distress. Head/Face: Normocephalic, atraumatic. Neck: Trachea midline, no thyromegaly or masses palpated, and no cervical lymphadenopathy. Supple, full range of motion without nuchal rigidity, or vertebral point tenderness. No Meningismus. Cardiovascular: Regular rate and rhythm with a normal S1 and S2. No gallops, murmurs, or rubs. Normal PMI, no JVD. No pulse deficits. Respiratory: Lungs have equal breath sounds bilaterally, clear to auscultation and percussion. No rales, rhonchi or wheezes noted. No increased work of breathing, no retractions or nasal flaring. Abdomen/GI: Soft, non-tender, with normal bowel sounds. No distension or tympany. No guarding or rebound. No evidence of tenderness throughout. Skin: Warm, dry with normal turgor. Normal color with no rashes, no lesions, and no evidence of cellulitis. MS/ Extremity: Pulses equal, no cyanosis. Neurovascular intact. Full, normal range of motion. Neuro: Awake and alert, GCS 15, oriented to person, place, time, and situation. Cranial nerves II-XII grossly intact. Motor strength 5/5 in all extremities. Sensory grossly intact. Cerebellar exam normal. Normal gait. Vital Signs: 09:23 BP 207 / 88; Pulse 72; Resp 18; Temp 97.1; Pulse Ox 100% ; Weight 117.93 kg; Height 5 ll1 ft. 7 in. ; Pain 0/10; 09:52 BP 167 / 88; Pulse 75; Resp 18; Pulse Ox 99% on R/A; ld1 11:22 BP 141 / 59; Pulse 50; Resp 18; Pulse Ox 99% on R/A; ld1 09:23 Body Mass Index 40.72 (117.93 kg, 170.18 cm) ll1 09:23 Pain Scale: Adult ll1 MDM: 09:27 Patient medically screened. [facility] 11:12 Differential diagnosis: hypertensive crisis, Malignant HTN. Data interpreted: Pulse [facility] oximetry: is 99 %. Interpretation: normal. Data reviewed: vital signs, nurses notes, lab test result(s), EKG, radiologic studies, plain films. I considered the following discharge prescriptions or medication management in the emergency department Medications were administered in the Emergency Department. See MAR. Independent interpretation of the following test(s) in the Emergency Department EKG: See my EKG interpretation above. Care significantly affected by the following chronic conditions: Hypertension, Congestive Heart Failure. Counseling: I had a detailed discussion with the patient and/or guardian regarding the historical points, exam findings, and any diagnostic results supporting the discharge/admit diagnosis, the need for outpatient follow up, a care technician, Dr. Han, to return to the emergency department if symptoms worsen or persist or if there are any questions or concerns that arise at home. Special discussion: Patient was advised to increase her losartan dosage to 50 mg. May increase back up to her original 100 mg dosage if blood pressure continues to increase. Was advised to follow-up with Dr. Han within the next 1 to 2 days for potential medication dosage adjustment. Patient's blood pressure decreased to 122/70 and she stated that she felt much better. Informed her that all labs, EKG, and chest x-ray were reassuring.. 11/05 09:28 Order name: Basic Metabolic Panel; Complete Time: 10:17 [facility] 11/05 09:28 Order name: CBC with Diff; Complete Time: 10:00 [facility] 11/05 09:28 Order name: NT PRO-BNP; Complete Time: 10: [facility] 11/05 09:28 Order name: Troponin HS; Complete Time: : [facility] 11/05 09:28 Order name: XRAY Chest (1 view); Complete Time: 11:00 [facility] 11/05 09:28 Order name: Cardiac monitoring; Complete Time: 09:45 [facility] 11/05 09:28 Order name: EKG - Nurse/Tech; Complete Time: 09:45 [facility] 11/05 09:28 Order name: IV Saline Lock; Complete Time: 09:48 [facility] 11/05 09:28 Order name: Labs collected and sent; Complete Time: :48 [facility] 11/05 09:28 Order name: O2 Per Protocol; Complete Time: 09:29 [facility] 11/05 09:28 Order name: O2 Sat Monitoring; Complete Time: 09:29 [facility] 11/05 11:07 Order name: Recheck Blood Pressure; Complete Time: 11:22 [facility] EC:39 Rate is 59 beats/min. Rhythm is regular. QRS [place] is Normal. CA interval is normal at [facility] 188 msec. QRS interval is normal at 98 msec. QT interval is normal at 452 msec. No Q waves. T waves are Normal. Clinical impression: Sinus bradycardia. Administered Medications: 09:48 Drug: hydrALAZINE IVP 10 mg IVP once Route: IVP; Site: right antecubital; ld1 Disposition: 11:41 Co-signature as Attending Physician, Adan Peñaloza MD I reviewed the patient's care rt provided by the Advanced Practice Provider and agree with the diagnosis and treatment plan. Disposition Summary: 11/06/23 11:08 Discharge Ordered Notes: Location: Home [facility] Problem: chronic jh7 Symptoms: have improved [facility] Condition: Stable [facility] Diagnosis - Essential (primary) hypertension [facility] Followup: [facility] - With: Shorty Han MD - When: 1 - 2 days - Reason: Recheck today's complaints Discharge Instructions: - Discharge Summary Sheet [facility] - Hypertension, Adult [facility] - Managing Your Hypertension [facility] Forms: - Medication Reconciliation Form [facility] - Thank You Letter [facility] - Patient Portal Instructions [facility] - Leadership Thank You Letter [facility] Signatures: Dispatcher [employer] EDMS Katey Bah RN RN ld1 Anaid Charlton FNP ELECTRICAL SERVICE TECHNICIAN [facility] Adan Peñaloza MD MD rt Corrections: (The following items were deleted from the chart) 09:29 09:28 Chest Single View+RAD.RAD.BRZ ordered. EDMS EDMS 10:02 10:00 Chest Single View+RAD.RAD.BRZ ordered. EDMS EDMS
--- NOTE | 2023-11-06 11:09 | ER ---
Nurse's Notes [facility] Name: Loreta Whitaker Age: 83 yrs Sex: Female : 1940 Arrival Date: 11/06/2023 Time: 09:13 Bed 6 Private MD: Harvinder Dowling V Diagnosis: Essential (primary) hypertension Presentation: 11/05 09:23 Chief complaint: Patient states: Elevated BP for about 1 week. No CP, feels fatigued. ll1 Coronavirus screen: Client denies travel out of the [place] in the last 14 days. At this time, the client does not indicate any symptoms associated with coronavirus-19. Ebola Screen: Patient denies travel to an Ebola-affected area in the 21 days before illness onset. Initial Sepsis Screen: Does the patient meet any 2 criteria? No. Patient's initial sepsis screen is negative. Does the patient have a suspected source of infection? No. Patient's initial sepsis screen is negative. Risk Assessment: Do you want to hurt yourself or someone else? Patient reports no desire to harm self or others. Onset of symptoms was October 30, 2023. 09:23 Method Of Arrival: Ambulatory ll1 09:23 Acuity: LATOYA 2 ll1 Triage Assessment: 09:24 General: Appears uncomfortable, Behavior is calm, cooperative, appropriate for age. ll1 General: Reports fatigue for. Pain: Denies pain. Neuro: Reports. Cardiovascular: Reports elevated BP for 1 week. Historical: - Allergies: 09:20 No Known Allergies; ld1 - PMHx: 09:20 Diverticulitis; Hypertension; Hypothyroidism; ld1 - PSHx: 09:20 heart cath; ld1 - Immunization history:: Adult Immunizations up to date. - Infectious Disease History:: Denies. - Social history:: Smoking status: Patient denies any tobacco usage or history of. Screenin:52 [facility] ED Fall Risk Assessment (Adult) History of falling in the last 3 months, ld1 including since admission No falls in past 3 months (0 pts). Abuse screen: Denies threats or abuse. Denies injuries from another. Nutritional screening: No deficits noted. Tuberculosis screening: No symptoms or risk factors identified. Assessment: 09:52 General: Appears in no apparent distress. comfortable, Behavior is calm, cooperative, ld1 appropriate for age. Pain: Denies pain. Neuro: Level of Consciousness is awake, alert, obeys commands, Oriented to person, place, time, situation. Cardiovascular: Capillary refill < 3 seconds Patient's skin is warm and dry. Rhythm is sinus rhythm. Respiratory: Airway is patent Respiratory effort is even, unlabored. GI: Abdomen is flat, non-distended. : No signs and/or symptoms were reported regarding the genitourinary system. EENT: No signs and/or symptoms were reported regarding the EENT system. Derm: No signs and/or symptoms reported regarding the dermatologic system. Musculoskeletal: No signs and/or symptoms reported regarding the musculoskeletal system. 11:22 Reassessment: Patient appears in no apparent distress at this time. No changes from ld1 previously documented assessment. Patient and/or family updated on plan of care and expected duration. Pain level reassessed. Patient is alert, oriented x 3, equal unlabored respirations, skin warm/dry/pink. Patient states symptoms have improved. Vital Signs: 09:23 BP 207 / 88; Pulse 72; Resp 18; Temp 97.1; Pulse Ox 100% ; Weight 117.93 kg; Height 5 ll1 ft. 7 in. ; Pain 0/10; 09:52 BP 167 / 88; Pulse 75; Resp 18; Pulse Ox 99% on R/A; ld1 11:22 BP 141 / 59; Pulse 50; Resp 18; Pulse Ox 99% on R/A; ld1 09:23 Body Mass Index 40.72 (117.93 kg, 170.18 cm) ll1 09:23 Pain Scale: Adult ll1 ED Course: 09:15 Patient arrived in ED. rg4 09:15 Harvinder Dowling MD is Private Physician. rg4 09:20 Arm band placed on Patient placed in an exam room, on a stretcher. ld1 09:24 Triage completed. ll1 09:27 Katey Bah RN is Primary Nurse. ld1 09:27 [facility] jh7 09:27 Adna Peñaloza MD is Attending Physician. jh7 09:48 Inserted saline lock: 20 gauge in right antecubital area, using aseptic technique. ld1 Blood collected. 09:52 Patient has correct armband on for positive identification. Placed in gown. Bed in low ld1 position. Call light in reach. Side rails up X2. environmental monitoring technician on. Pulse ox on. NIBP on. Door closed. Noise minimized. Warm blanket given. 09:52 No provider procedures requiring assistance completed. ld1 10:51 XRAY Chest (1 view) In Process Unspecified. EDMS 11:08 Harvinder Dowling MD is Referral Physician. 7 11:08 Shorty Han MD is Referral Physician. 7 11:08 Referral Physician role handed off by Harvinder Dowling MD [facility] 11:23 IV discontinued, intact, bleeding controlled, No redness/swelling at site. ld1 Administered Medications: 09:48 Drug: hydrALAZINE IVP 10 mg IVP once Route: IVP; Site: right antecubital; ld1 Medication: 09:52 VIS not applicable for this client. ld1 Outcome: 11:08 Discharge ordered by . jh7 11:23 Discharged to home ambulatory, ld1 11:23 Condition: stable 11:23 Discharge instructions given to patient, Instructed on discharge instructions, follow up and referral plans. Demonstrated understanding of instructions, follow-up care, 11:32 Patient left the ED. ld1 Signatures: Dispatcher [employer] Brittany Bey rg4 Aixa Del Toro RN RN 1 Katey Bah RN RN ld1 Anaid Charlton FNP [employer]TER[employer]SEMBLER [facility]
[2023-11-06 11:58] VITALS: BP 141/59; TEMP 97.1; O2SAT 99
== END 2023-11-06 11:32 | disposition home or self-care (01) ==
LOC: ER 09:13
DX: I10 Essential (primary) hypertension (principal); Z95.9 Presence of cardiac and vascular implant and graft, unspecified
CPT/HCPCS: 93005; 85025; 80048; 36415; 84484; 83880; 71045; 96374; 99285; J0360

== ENCOUNTER 2024-04-05 11:46 | Day surgery (SDC) | payer OTHER ==
[2024-04-04 15:57] LABS: Absolute Eosinophils 0.1 K/uL (0-0.5); Absolute Lymphocytes (CBC) 1.2 K/uL (0.7-4.9); Absolute Monocytes 0.7 K/uL (0.1-1.3); Absolute Neutrophil 3.9 K/uL (1.8-8.0); Basophils % 0.7 % (0-1.3); Eosinophils % 1.2 % (0-4.4); Hematocrit 43.7 % (36.0-45.0); Hemoglobin 14.1 g/dL (12.0-15.0); Lymphocytes % 20.3 % (15.3-44.8); MCHC 32.3 g/dL (32.0-36.0); MCV 99.2 fL (80-100); Monocytes % 11.5 % (3.3-12.3); Neutrophils % 66.3 % (41.7-73.7); Platelets 267 thou/uL (152-406); Red Cell Distribution Width 14.6 % (12.1-15.2)
[2024-04-04 16:08] LABS: Anion Gap 11.3 mEq/L (5.0-15.0); Potassium 5.3 mEq/L (3.5-5.1)
[2024-04-05] MEDS ORDERED: Ringers Lactate 1,000 ML IV ONE (12:25)
[2024-04-05] MEDS ORDERED: propofoL 200 MG/20 ML VIAL IV ONE ×3 (13:41→14:23)
[2024-04-05] MEDS ORDERED: LIDOCAINE 1% MPF 5 ML VIAL ONE (13:41)
[2024-04-05 14:56] VITALS: TEMP 98.3
[2024-04-05 15:16] VITALS: BP 153/75; O2SAT 99
== END 2024-04-05 15:15 | disposition home or self-care (01) ==
LOC: OR 11:46
PROVIDERS: ATTEND Surgery
PROC: 0DBM8ZX Excision of Descending Colon, Via Natural or Artificial Opening Endoscopic, Diagnostic (ICD-10-PCS; principal; 2024-04-05 13:15)
DX: Z12.11 Encounter for screening for malignant neoplasm of colon (principal); K64.8 Other hemorrhoids; K63.89 Other specified diseases of intestine
CPT/HCPCS: 36415; 80048; 85025; J2001; J2704; J7120

== ENCOUNTER 2024-12-10 15:52 | Observation (INO) | payer OTHER ==
--- NOTE | 2024-12-10 17:01 | RAD REPORT ---
EXAM: CT brain without contrast HISTORY: Diplopia COMPARISON: None TECHNIQUE: Multiple contiguous axial images were obtained and a CT of the brain without contrast.. Sagittal and coronal reconstruction performed. Automated exposure control, adjustment of the mA and/or kV according to patient size, and/or iterative reconstruction. Unless otherwise specified, incidental f indings do not require dedicated imaging follow-up FINDINGS: An intracranial bleed is not seen Ventricles are normal caliber No extra-axial fluid collection noted Mild low-density paraventricular, deep and subcortical white matter probably changes secondary to sma ll vessel disease. No fluid within the visualized sinuses or mastoids noted. IMPRESSION: No acute intracranial abnormality noted. If the patient continues to have symptoms to suggest an acute intracranial abnormality then MRI of th e brain would be recommended.
--- NOTE | 2024-12-10 17:26 | RAD REPORT ---
Procedure: Chest Single View HISTORY: Diplopia COMPARISON: 2023 FINDINGS: The lungs appear clear of acute infiltrate. No significant pleural effusion noted. The heart is mildly enlarged. . IMPRESSION: No acute abnormality is displayed.
[2024-12-10 17:59] LABS: Absolute Eosinophils 0.1 K/uL (0-0.5); Absolute Lymphocytes (CBC) 1.3 K/uL (0.7-4.9); Absolute Monocytes 0.7 K/uL (0.1-1.3); Absolute Neutrophil 3.5 K/uL (1.8-8.0); Basophils % 0.8 % (0-1.3); Hematocrit 43.4 % (36.0-45.0); Hemoglobin 14.7 g/dL (12.0-15.0); MCH 33.2 pg (27.0-35.0); MCHC 33.9 g/dL (32.0-36.0); MCV 97.9 fL (80-100); MPV 8.1 fL (7.6-11.3); Monocytes % 12.3 % (3.3-12.3); Neutrophils % 61.9 % (41.7-73.7); Nucleated Red Blood Cells % 0.1 % (0-0); Platelets 245 thou/uL (152-406); RBC Red Blood Cell Count 4.44 M/uL (3.86-4.86); Red Cell Distribution Width 14.1 % (12.1-15.2)
[2024-12-10 18:08] LABS: PT Prothrombin Time 10.4 SECONDS (10-13.0); PTT, Activated Partial Thromb 29.1 SECONDS (27.2-37.4); Protime INR 0.91
[2024-12-10 18:17] LABS: Anion Gap 9.4 mEq/L (5.0-15.0); Potassium 4.4 mEq/L (3.5-5.1); Troponin High Sensitivity 8.2 pg/mL (<58.9)
--- NOTE | 2024-12-10 19:49 | RAD REPORT ---
EXAMINATION: CTA HEAD CLINICAL INDICATION: Diplopia TECHNIQUE: Axial CT images were obtained through the head after 100 cc Isovue-370 intravenous contras t utilizing angiographic protocol with 3D post-processing (maximum intensity projection images, volume rendered images and/or shaded surface rendered images). One or more of the following dose red uction techniques were used: Automated exposure control, adjustment of the mA and/or kV according to patient size, and/or iterative reconstruction. Unless otherwise specified, incidental findings do not require dedicated imaging follow-up. COMPARISON: None FINDINGS: Distal internal carotid, basilar, anterior cerebral, middle cerebral and posterior cerebral arteries do not demonstrate a significant stenosis origin right posterior cerebral artery An aneurysm not noted. No large vessel occlusion IMPRESSION: No acute vascular abnormality displayed
--- NOTE | 2024-12-10 19:49 | RAD REPORT ---
EXAMINATION: Neck Angio CLINICAL INDICATION: Diplopia TECHNIQUE: Axial CT images were obtained from the aortic arch to the skull base after intravenous adm inistration of 100 cc Isovue-370 utilizing angiographic protocol. Multiplanar reformats, as well as 3D post-processing (maximum intensity projection images, volume rendered images and/or shaded surface rendered images) were generated and reviewed. One or more of the following dose reduction techniques were used: Automated exposure control, adjustment of the mA and/or kV according to patient size, and/or iterative reconstruction. Unless otherwise specified, incidental findings do not require dedicated imaging follow-up. COMPARISON: No prior exam. FINDINGS: The visualized aortic arch and great vessels do not demonstrate a significant abnormality Mild plaque is present within common carotid, internal carotid and external carotid arteries bilatera lly. Left vertebral artery is hypoplastic. Vertebral arteries are otherwise unremarkable. No significant stenosis noted. A dissection is not seen. Methods for NASCET criteria: Mild stenosis, 0% to 49%; Moderate stenosis 50% to 69%; Severe stenosis, 70% to 99% IMPRESSION: No acute vascular abnormality displayed
[2024-12-10] MEDS ORDERED: HYDRALAZINE HCL 20 MG/ML VIAL ONE (20:00)
--- NOTE | 2024-12-10 20:53 | EDPHYS ---
Physician Documentation [facility] Name: Loreta Whitaker Age: 84 yrs Sex: Female : 1940 Arrival Date: 12/10/2024 Time: 15:52 Bed 26 Private MD: ED Physician Adan Peñaloza HPI: 12/10 17:10 This 84 yrs old Female presents to ER via Ambulatory with complaints of Vision Problem. ms3 17:10 84-year-old female with past medical history of diverticulitis, hypertension, ms3 hypothyroidism, congestive heart failure presents to the emergency department with her daughter for double vision that began yesterday morning. Patient denies pain. Patient endorses mild frontal headache. She denies any alleviating or inciting factors.. Historical: - Allergies: 16:24 No Known Allergies; hb - PMHx: 16:24 Diverticulitis; Hypertension; Hypothyroidism; hb 16:30 CHF; hb - PSHx: 16:24 heart cath; hb - Immunization history:: Adult Immunizations up to date. - Infectious Disease History:: Denies. - Social history:: Smoking status: Patient denies any tobacco usage or history of. ROS: 17:10 Constitutional: Negative for fever, and chills. Cardiovascular: Negative for chest ms3 pain, and palpitations. Respiratory: Negative for shortness of breath, cough, wheezing, and pleuritic chest pain, Abdomen/GI: Negative for abdominal pain, nausea, vomiting, diarrhea, and constipation, 17:10 Skin: Negative for injury, rash, and discoloration, 17:10 Eyes: Positive for double vision, 17:10 Neuro: Positive for headache, Exam: 17:10 Constitutional: This is a well developed, well nourished patient who is awake, alert, ms3 and in no acute distress. Cardiovascular: Regular rate and rhythm with a normal S1 and S2. No gallops, murmurs, or rubs. Normal PMI, no JVD. No pulse deficits. Respiratory: Lungs have equal breath sounds bilaterally, clear to auscultation and percussion. No rales, rhonchi or wheezes noted. No increased work of breathing, no retractions or nasal flaring. Abdomen/GI: Soft, non-tender, with normal bowel sounds. No distension or tympany. No guarding or rebound. No evidence of tenderness throughout. Skin: Warm, dry with normal turgor. Normal color with no rashes, no lesions, and no evidence of cellulitis. MS/ Extremity: Pulses equal, no cyanosis. Neurovascular intact. Full, normal range of motion. Neuro: Awake and alert, GCS 15, oriented to person, place, time, and situation. Cranial nerves II-XII grossly intact. Motor strength 5/5 in all extremities. Sensory grossly intact. Cerebellar exam normal. Normal gait. 18:26 ECG was reviewed by the Attending Physician. rt Vital Signs: 16:22 BP 94 / 67; Pulse 68; Resp 16; Temp 98; Pulse Ox 100% on R/A; Weight 113.4 kg; Height 5 hb ft. 3 in. ; Pain 2/10; 17:40 BP 168 / 98; Pulse 67; Resp 18; Pulse Ox 99% ; kn 18:00 BP 184 / 73; Pulse 60; Resp 18; Pulse Ox 98% ; kn 19:00 BP 190 / 78; Pulse 64; Resp 14; Pulse Ox 98% on R/A; al5 19:30 BP 200 / 80; Pulse 59; Resp 15; Pulse Ox 99% ; al5 20:00 BP 195 / 72; Pulse 60; Resp 15; Pulse Ox 98% ; al5 20:30 BP 147 / 116; Pulse 66; Resp 16; Pulse Ox 99% ; al5 21:00 BP 173 / 84; Pulse 65; Resp 15; Pulse Ox 99% ; al5 21:30 BP 167 / 72; Pulse 74; Resp 15; Pulse Ox 98% ; al5 22:00 BP 152 / 59; Pulse 79; Resp 16; Pulse Ox 98% ; al5 16:22 Body Mass Index 44.29 (113.40 kg, 160.02 cm) hb 16:22 Pain Scale: Adult hb MDM: 16:28 Medical Screening Exam initiated ms3 17:41 Transition of care: After a detail discussion of the patient's case, care is ms3 transferred to Adan Peñaloza MD. 21:09 Differential diagnosis: CVA, TIA. Data reviewed: vital signs, nurses notes. rt 21:09 Consideration of Admission/Observation Patient was admitted/placed on observation. rt Management of patient was discussed with the following: Dr. Contreras requests dual antiplatelets, atorvastatin, admission.. Independent interpretation of the following test(s) in the Emergency Department CT Scan: My interpretation is No intracranial hemorrhage seen on interpretation of CT scan images. Care significantly affected by the following chronic conditions: Congestive Heart Failure. Counseling: I had a detailed discussion with the patient and/or guardian regarding the historical points, exam findings, and any diagnostic results supporting the discharge/admit diagnosis, lab results, radiology results, the need for further work-up and treatment in the hospital. 12/10 16:35 Order name: Basic Metabolic Panel; Complete Time: 18:22 ms3 12/10 16:35 Order name: CBC with Diff; Complete Time: 18:22 ms3 12/10 16:35 Order name: High Sensitivity Troponin; Complete Time: 18:22 ms3 12/10 16:35 Order name: Protime (+inr); Complete Time: 18:22 ms3 12/10 16:35 Order name: Ptt, Activated; Complete Time: 18:22 ms3 12/10 16:33 Order name: CT Head Brain wo Cont; Complete Time: 17:08 ms3 12/10 16:35 Order name: Stroke CXR 1 View; Complete Time: 17:33 ms3 12/10 17:24 Order name: Head Angio CT; Complete Time: 19:52 ms3 12/10 17:24 Order name: Neck Angio CT; Complete Time: 19:52 ms3 12/10 20:57 Order name: CONS Physician Consult EDDE 12/10 16:35 Order name: Cardiac monitoring; Complete Time: 17:54 ms3 12/10 16:35 Order name: EKG - Nurse/Tech; Complete Time: 17:54 ms3 12/10 16:35 Order name: IV Saline Lock; Complete Time: 17:54 ms3 12/10 16:35 Order name: Labs collected and sent; Complete Time: 17:54 ms3 12/10 16:35 Order name: NPO; Complete Time: 17:55 ms3 12/10 16:35 Order name: O2 Per Protocol; Complete Time: 17:55 ms3 12/10 16:35 Order name: O2 Sat Monitoring; Complete Time: 17:55 ms3 12/10 16:35 Order name: Stroke Swallow Screen; Complete Time: 19:01 ms3 EC: Rate is 59 beats/min. Rhythm is regular, Sinus bradycardia with No ectopy. QRS [place] is rt Normal. [place] interval is normal. QRS interval is normal. QT interval is normal. No Q waves. No ST changes noted. Interpreted by me. Administered Medications: 20:06 Drug: hydrALAZINE IVP 10 mg IVP once Route: IVP; Site: right antecubital; al5 22:21 Follow up: Response: No adverse reaction; Blood pressure is lowered al5 21:44 Drug: metoCLOPramide IVP 10 mg IVP once; over 1 to 2 minutes Route: IVP; Site: right al5 antecubital; 22:20 Follow up: Response: No adverse reaction al5 21:45 Drug: diphenhydrAMINE IVP 25 mg IVP once Route: IVP; Site: right antecubital; al5 22:20 Follow up: Response: No adverse reaction al5 21:45 Drug: Aspirin PO Chewable Tablet 324 mg PO once; 81 mg tablets x 4 Route: PO; al5 22:20 Follow up: Response: No adverse reaction al5 21:45 Drug: Clopidogrel PO 75 mg PO once Route: PO; al5 22:20 Follow up: Response: No adverse reaction al5 Disposition Summary: 12/10/24 20:53 Hospitalization Ordered Notes: Hospitalization Status: Observation rt Provider: Harvinder Dowling rt Condition: Stable rt Problem: new rt Symptoms: are unchanged rt Bed/Room Type: Standard rt Location: Intensive Care Unit(12/11/24 07:18) bd Room Assignment: 2-(12/11/24 07:18) bd Diagnosis - Diplopia rt Forms: - Medication Reconciliation Form rt - SBAR form rt - Leadership Thank You Letter rt Signatures: Dispatcher [employer] EDPrachi Mendoza Cindy, RN RN Cassidy Welch RN RN hb Sims, Marcus, DO DO ms3 Adan Peñaloza MD MD rt Lesley Leggett RN RN al5 Corrections: (The following items were deleted from the chart) 16:34 16:34 Head Brain Wo Cont+CT.RAD.BRZ ordered. EDMS EDMS 16:35 16:35 BASIC METABOLIC PANEL+C.LAB.BRZ ordered. EDMS EDMS 16:35 16:35 CBC+H.LAB.BRZ ordered. EDMS EDMS 16:35 16:35 Troponin High Sensitivity+C.LAB.BRZ ordered. EDMS EDMS 16:35 16:35 PROTIME (+INR)+COAG.LAB.BRZ ordered. EDMS EDMS 16:35 16:35 PTT, ACTIVATED+COAG.LAB.BRZ ordered. EDMS EDMS 16:35 16:35 Chest Single View+RAD.RAD.BRZ ordered. EDMS EDMS 17:25 17:25 Neck Angio+CT.RAD.BRZ ordered. EDMS EDMS 19:01 16:35 Accucheck ordered. ms3 kn 21:14 20:53 Telemetry/MedSurg (observation) rt cg 21:14 20:53 rt cg 12/11 07:18 12/10 21:14 [facility] ER HOLD cg bd 12/11 07:18 12/10 21:14 ERHOLD- cg bd
--- NOTE | 2024-12-10 20:53 | ER ---
Nurse's Notes [facility] Name: Loreta Whitaker Age: 84 yrs Sex: Female : 1940 Arrival Date: 12/10/2024 Time: 15:52 Bed 26 Private MD: Diagnosis: Diplopia Presentation: 12/10 16:22 Chief complaint: Sent from urgent care for double vision and dizziness since 929 hb yesterday, mild frontal headache today. Coronavirus screen: At this time, the client does not indicate any symptoms associated with coronavirus-19. Ebola Screen: No symptoms or risks identified at this time. Initial Sepsis Screen: Does the patient meet any 2 criteria? No. Patient's initial sepsis screen is negative. Does the patient have a suspected source of infection? No. Patient's initial sepsis screen is negative. Risk Assessment: Do you want to hurt yourself or someone else? Patient reports no desire to harm self or others. Onset of symptoms was December 09, 2024. 16:22 Method Of Arrival: Ambulatory hb 16:22 Acuity: LTAOYA 3 hb Triage Assessment: 18:07 General: Appears in no apparent distress. distressed, comfortable, Behavior is calm, kn cooperative, appropriate for age. Pain: Denies pain. Historical: - Allergies: 16:24 No Known Allergies; hb - PMHx: 16:24 Diverticulitis; Hypertension; Hypothyroidism; hb 16:30 CHF; hb - PSHx: 16:24 heart cath; hb - Immunization history:: Adult Immunizations up to date. - Infectious Disease History:: Denies. - Social history:: Smoking status: Patient denies any tobacco usage or history of. Screenin:09 [facility] ED Fall Risk Assessment (Adult) History of falling in the last 3 months, kn including since admission No falls in past 3 months (0 pts) Confusion or Disorientation No (0 pts) Intoxicated or Sedated No (0 pts) Impaired Gait No (0 pts) Mobility Assist Device Used No (0 pt) Altered Elimination No (0 pt) Score/Fall Risk Level 0 - 2 = Low Risk Oriented to surroundings, Maintained a safe environment. 18:09 Abuse screen: Denies threats or abuse. Denies injuries from another. Nutritional kn screening: No deficits noted. Tuberculosis screening: No symptoms or risk factors identified. 18:45 [place] Swallow Protocol Brief Cognitive Screen What is your name? Normal, Where are you kn right now? Normal, What year is it? Normal. Oral Mechanism Examination Facial Symmetry: Normal, Motion: Normal, Lip Closure: Normal, Oral Mechanism Result: Normal. 3 oz Water Swallow Challenge: Pt able to drink all water without stopping, coughing, choking or throat clearing: Yes MD Notified: Adan Peñaloza MD. Assessment: 18:09 Reassessment: pt wc to bed, c/c: double vision that started yesterday, pt denies any kn other symptoms, no slurred speech, no facial droop, no numbness/tingling to ext x4, PMHX: htn, chf, diverticulitis, bowel resec, cardiac cath/no stents, bilat knee replacement, lac sixto, cataract sx. pt is AAOx4, in no acute distress, placed on equipment monitor phototypesetting, bp cuff, and pulse ox, vss, will continue to monitor pt. 18:46 Reassessment: pt to CT. kn 19:03 Reassessment: pt care/report given to SCOTTY Sutton. pt is in CT. kn 19:46 General: Appears in no apparent distress. comfortable, Behavior is calm, cooperative. al5 Pain: Complains of pain in head. Neuro: Level of Consciousness is awake, alert, obeys commands, Oriented to person, place, time, situation, Reports blurred vision. Cardiovascular: Capillary refill < 3 seconds Patient's skin is warm and dry. Respiratory: Airway is patent Respiratory effort is even, unlabored, Respiratory pattern is regular, symmetrical. GI: No signs and/or symptoms were reported involving the gastrointestinal system. : No signs and/or symptoms were reported regarding the genitourinary system. EENT: No signs and/or symptoms were reported regarding the EENT system. Derm: Skin is intact, is healthy with good turgor, Skin is pink, warm \T\ dry. normal. Musculoskeletal: No signs and/or symptoms reported regarding the musculoskeletal system. 21:07 Reassessment: Patient appears in no apparent distress at this time. No changes from al5 previously documented assessment. Patient and/or family updated on plan of care and expected duration. Pain level reassessed. Patient is alert, oriented x 3, equal unlabored respirations, skin warm/dry/pink. 22:19 Reassessment: Patient appears in no apparent distress at this time. No changes from al5 previously documented assessment. Patient and/or family updated on plan of care and expected duration. Pain level reassessed. Patient is alert, oriented x 3, equal unlabored respirations, skin warm/dry/pink. Vital Signs: 16:22 BP 94 / 67; Pulse 68; Resp 16; Temp 98; Pulse Ox 100% on R/A; Weight 113.4 kg; Height 5 hb ft. 3 in. ; Pain 2/10; 17:40 BP 168 / 98; Pulse 67; Resp 18; Pulse Ox 99% ; kn 18:00 BP 184 / 73; Pulse 60; Resp 18; Pulse Ox 98% ; kn 19:00 BP 190 / 78; Pulse 64; Resp 14; Pulse Ox 98% on R/A; al5 19:30 BP 200 / 80; Pulse 59; Resp 15; Pulse Ox 99% ; al5 20:00 BP 195 / 72; Pulse 60; Resp 15; Pulse Ox 98% ; al5 20:30 BP 147 / 116; Pulse 66; Resp 16; Pulse Ox 99% ; al5 21:00 BP 173 / 84; Pulse 65; Resp 15; Pulse Ox 99% ; al5 21:30 BP 167 / 72; Pulse 74; Resp 15; Pulse Ox 98% ; al5 22:00 BP 152 / 59; Pulse 79; Resp 16; Pulse Ox 98% ; al5 16:22 Body Mass Index 44.29 (113.40 kg, 160.02 cm) hb 16:22 Pain Scale: Adult hb ED Course: 15:54 Patient arrived in ED. mr 16:01 Hitesh Bah DO is Attending Physician. ms3 16:24 Triage completed. hb 16:24 Arm band placed on. hb 16:48 CT Head Brain wo Cont In Process Unspecified. EDMS 17:01 Stroke CXR 1 View In Process Unspecified. EDMS 17:30 Radiology exam delayed due to lab results not completed at this time. (BUN/Creatinine) jc4 IV insertion attempt and/or patient not having appropriate IV at this time. 17:32 Radiology exam delayed due to lab results not completed at this time. (BUN/Creatinine) nj IV insertion attempt and/or patient not having appropriate IV at this time. 17:34 Attending Physician role handed off by Hitesh Bah DO rt 17:34 Adan Peñaloza MD is Attending Physician. rt 17:55 Basic Metabolic Panel Sent. bc6 17:55 Ptt, Activated Sent. bc6 17:55 Protime (+inr) Sent. bc6 17:55 High Sensitivity Troponin Sent. bc6 17:55 CBC with Diff Sent. bc6 17:55 Initial lab(s) drawn, by me, sent to lab. EKG done, by ED staff, reviewed by Adan Peñaloza MD. Inserted saline lock: 20 gauge in right antecubital area, using aseptic technique. Blood collected. Flushed with 10 mL NS. 18:06 NIKOS RAMIREZ, RN is Primary Nurse. kn 18:09 Patient has correct armband on for positive identification. Bed in low position. Call kn light in reach. Side rails up X 1. Provided Education on: use of call light. 18:09 No provider procedures requiring assistance completed. kn 19:[address] In Process Unspecified. EDMS 19:[address] In Process Unspecified. EDMS 20:52 Harvinder Dowling MD is Hospitalizing Provider. rt 22:19 Patient admitted, IV remains in place. al5 Administered Medications: 20:06 Drug: hydrALAZINE IVP 10 mg IVP once Route: IVP; Site: right antecubital; al5 22:21 Follow up: Response: No adverse reaction; Blood pressure is lowered al5 21:44 Drug: metoCLOPramide IVP 10 mg IVP once; over 1 to 2 minutes Route: IVP; Site: right al5 antecubital; 22:20 Follow up: Response: No adverse reaction al5 21:45 Drug: diphenhydrAMINE IVP 25 mg IVP once Route: IVP; Site: right antecubital; al5 22:20 Follow up: Response: No adverse reaction al5 21:45 Drug: Aspirin PO Chewable Tablet 324 mg PO once; 81 mg tablets x 4 Route: PO; al5 22:20 Follow up: Response: No adverse reaction al5 21:45 Drug: Clopidogrel PO 75 mg PO once Route: PO; al5 22:20 Follow up: Response: No adverse reaction al5 Medication: 18:09 VIS not applicable for this client. kn Outcome: 20:53 Decision to Hospitalize by Provider. rt 22:20 Admitted to ER Hold. Please see [place] for further documentation. al5 22:20 Condition: stable 22:20 Instructed on the need for admit, 12/11 08:12 Patient left the ED. ll1 Signatures: Dispatcher [employer] EDNatalie Keith, Reg Reg mr Yuri Cassidy, RN RN Marcial, Aixa Osman RN RN ll1 Hitesh Bah, DO DO ms3 Adan Peñaloza MD MD rt Tammy Carrillo 6 NIKOS RAMIREZ RN RN Lesley Leggett RN RN al5 Kelvin Damian jc4 Corrections: (The following items were deleted from the chart) 12/10 16:25 16:22 Chief complaint: Sent from urgent care for double vision and dizziness since hb yesterday. hb 16:30 16:22 Chief complaint: Sent from urgent care for double vision and dizziness since 929 hb yesterday. hb 16:30 16:22 BP 94 / 67; Pulse 68bpm; Resp 16bpm; Pulse Ox 100% RA; Temp 98F; hb hb 16:30 16:22 BP 94 / 67; Pulse 68bpm; Resp 16bpm; Pulse Ox 100% RA; Temp 98F; Pain 2/10, hb Adult; hb 22:21 22:20 Response: No adverse reaction; Pain is decreased al5 al5
[2024-12-10] MEDS ORDERED: ASPIRIN 81 MG CHEWABLE TABLET ONE (21:20)
[2024-12-10] MEDS ORDERED: CLOPIDOGREL 75 MG TABLET ONE (21:20)
[2024-12-10] MEDS ORDERED: METOCLOPRAMIDE 10 MG/2mL INJ ONE (21:21)
[2024-12-10] MEDS ORDERED: DIPHENHYDRAMINE 50 MG/ML VIAL ONE (21:21)
[2024-12-11 01:26] VITALS: BMI 40.7
[2024-12-11 08:30] VITALS: O2SAT 98
[2024-12-11] MEDS: carvediloL 3.125 MG TAB PO SCH (08:49)
[2024-12-11] MEDS: CLOPIDOGREL 75 MG TABLET PO SCH (08:49)
[2024-12-11] MEDS: ASPIRIN EC 81 MG TAB PO SCH (08:50)
[2024-12-11] MEDS: LOSARTAN POTASSIUM 50 MG TABLET PO SCH (08:50)
[2024-12-11] MEDS: AMIODARONE HCL 200 MG TAB PO SCH (08:50)
[2024-12-11] MEDS: VORTIOXETINE HYDROBROMIDE 10 MG PO SCH (09:00)
[2024-12-11 09:57] LABS: Absolute Eosinophils 0.1 K/uL (0-0.5); Absolute Lymphocytes (CBC) 0.8 K/uL (0.7-4.9); Absolute Monocytes 0.5 K/uL (0.1-1.3); Basophils % 0.6 % (0-1.3); Eosinophils % 1.4 % (0-4.4); Hematocrit 40.6 % (36.0-45.0); Hemoglobin 13.8 g/dL (12.0-15.0); Lymphocytes % 18.3 % (15.3-44.8); MCH 32.8 pg (27.0-35.0); MCHC 33.8 g/dL (32.0-36.0); MCV 96.8 fL (80-100); Monocytes % 11.8 % (3.3-12.3); Neutrophils % 67.9 % (41.7-73.7); Nucleated Red Blood Cells % 0.2 % (0-0); Platelets 202 thou/uL (152-406); Red Cell Distribution Width 14.2 % (12.1-15.2)
[2024-12-11] MEDS: LORazepam 2 MG/ML VIAL IV PRN (10:03)
[2024-12-11 10:16] LABS: Albumin 3.4 g/dL (3.4-5.0); Bilirubin Total 0.7 mg/dL (0.2-1.0); Globulin 3.3 g/dL (2.3-3.5); Protein, Total 6.7 g/dL (6.4-8.2)
[2024-12-11 11:25] VITALS: BP 163/73; TEMP 98.1
--- NOTE | 2024-12-11 11:48 | RAD REPORT ---
EXAMINATION: MRI BRAIN WITHOUT CONTRAST CLINICAL INDICATION: Altered mental status. Confusion. Weakness. Double vision. TECHNIQUE: Multiplanar multisequence MR images of the brain were obtained without intravenous contras t. Unless otherwise specified, incidental findings do not require dedicated imaging follow-up. COMPARISON: December 10, 2024 FINDINGS: Mild to moderate abnormal signal within periventricular, deep and subcortical white matter probably i schemic changes secondary to small vessel disease. Diffusion weighted/ADC mapping does not demonstrate evidence of an acute infarction. Ventricles are normal caliber. No extra-axial fluid collection. No fluid within the sinuses/mastoid seen IMPRESSION: No acute intracranial abnormalities displayed
--- NOTE | 2024-12-11 12:18 | EKG ---
Test Date: 2024-12-10 Test Time: 17:50:10 Deputy Treasurer: JULIA MEASUREMENT RESULTS: Intervals: Rate: 59 VA: 188 QRSD: 88 QT: 444 QTc: 439 [place]: P: 48 VA: 188 QRS: 2 T: 28 INTERPRETIVE STATEMENTS: Sinus bradycardia Inferior infarct, age undetermined Abnormal ECG Compared to ECG 11/06/2023 09:39:21 No significant changes Electronically Signed On 12-11-24 12:16:[address]
--- NOTE | 2024-12-11 13:18 | P.SSS ---
Patient History Date of Service: 12/11/24 Reason for admission: double vision History of Present Illness: Loreta has htn and history of a fib. She had double vision for two days. There is no pain, no headaches, no weakness. She is comfortable. MRI brain is negative for stroke. She can go home and fu with Dr. Han for ruiz on diplopia. Allergies No Known Allergies Allergy (Verified 04/05/24 13:00) Home medications list reviewed: Yes Home Medications: Losartan Potassium [Cozaar] 1 tab PO DAILY 03/18/15 Trazodone HCl [Desyrel] 1 tab PO BEDTIME 03/18/15 Vortioxetine Hydrobromide [Trintellix] 20 mg PO DAILY 08/11/23 Amiodarone HCl [Cordarone*] 200 mg PO DAILY #60 tab 08/13/23 carvediloL [Coreg*] 3.125 mg PO BIDWM 02/08/24 - Past Medical/Surgical History Has patient received pneumonia vaccine in the past: Yes Diabetic: No -: hypothyroidism -: benign hypertension -: chest pain -: unstable angina -: cataract sx -: cholecystectomy - Social History Smoking Status: Never smoker Alcohol use: Yes CD- Drugs: No Caffeine use: Yes Place of Residence: Home Review of Systems 10-point ROS is otherwise unremarkable Physical Examination - Vital Signs Temperature: 98.1 F Blood Pressure: 163/73 Pulse: 54 Respirations: 10 Pulse Ox (%): 97 - Physical Exam General: Alert, In no apparent distress HEENT: Atraumatic, PERRLA, Mucous membr. moist/pink, EOMI, Sclerae nonicteric Neck: Supple, 2+ carotid pulse no bruit, No LAD, Without JVD or thyroid abnormality Respiratory: Clear to auscultation bilaterally, Normal air movement Cardiovascular: Regular rate/rhythm, Normal S1 S2 Gastrointestinal: Normal bowel sounds, No tenderness Musculoskeletal: No tenderness Integumentary: No rashes Neurological: Normal speech, Normal strength at 5/5 x4 extr, Other (diplopia. cranial nerve palsy minor possible, nothing obvious.) Lymphatics: No axilla or inguinal lymphadenopathy - Studies Laboratory Data (last 24 hrs) 12/10/24 12/10/24 12/10/24 17:50 17:50 17:50 WBC 5.70 Hgb 14.7 Hct 43.4 Plt Count 245 PT 10.4 INR 0.91 APTT 29.1 Sodium 139 Potassium 4.4 BUN 13 Creatinine 0.84 Glucose 108 H - Diagnosis (Problem(s)) (1) Diplopia Current Visit: Yes Status: Acute Plan: MRI BRAIN NEG. DR. GRAY AWARE DC HOME AND FU WITH HIM. NO SIGNS OF TA. NEEDS A GOOD EYE EXAM ALSO. - Disposition Disposition: ROUTINE DISCHARGE Condition: FAIR
[2024-12-11] MEDS ORDERED: TRAZODONE 50 MG TABLET PO SCH (21:00)
--- NOTE | 2024-12-12 01:17 | CON ---
Reason For Consultation: Consultation called because of double vision. History Of Present Illness: Ms. Whitaker is an 84-year-old patient with diabetes mellitus, hypertension, hypothyroidism, who sees Dr. Dowling. Her symptoms began a few weeks ago with some disturbing painful sensations in the left eye, which she attributed to allergies. However, about 2 days ago, she began noticing double vision. Double vision would resolve after closing either eye. She denies any other symptoms such as face, arm, or leg numbness or weakness; loss of speech, balance, gait, or coordinat ion. She came to [facility] and was admitted on 12/10/2024 for workup of stroke. Her brain CT scan and MRI ruled out presence of any acute ischemic or hemorrhagic strokes. The studies showed [id number] chronic small vessel ischemic disease. CT angiogram studies of her head and neck d one yesterday showed no acute intravascular abnormalities. When I evaluated the patient, she had dip lopia when looking toward her left. No diplopia when looking toward the extreme right. The diplopia had [id number] appearance, and when the left eye was covered, the outer image disappeared. When t he right eye was covered while looking through the left, the inner image disappeared. 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 Past Medical History: As noted above. Allergies: NO KNOWN DRUG ALLERGIES. Medications: Amiodarone 200 mg daily, aspirin 81 mg daily, carvedilol 3.125 mg daily, Plavix 75 mg d aily. She has Reglan, Desyrel, Ativan as needed. Laboratory Studies: Complete blood count with differential is completely normal. Coagulation panel completely normal. Basic metabolic panel also normal except for glucose ranging from 108 to 145. Social History: No alcohol, tobacco, or IV drug use. Review of Systems: Aside from mentioned above, no fevers, chills, nausea, vomiting, myalgias, arthralgias. There is ___ double vision and irritation such as some redness in the lateral left eye, which she attribut ed to allergies. Physical Examination: Vital Signs: Blood pressure 163/73, pulse 54, respiratory rate of 16 to 18, temperature 98.1, oxygen saturation 97%. Weight 250 pounds, height 5 feet 3 inches, BMI of 44.3. General: Ms. Whitaker is lying comfortably in ICU bed. Friend is at the bedside. HEENT: She is normocephalic, atraumatic. Her left eye does look slightly injected with a mildly dec reased palpebral fissure. Otherwise, she is atraumatic. Sclerae anicteric. Oropharynx pink and [address]. Neck: Supple. Chest: Clear. Heart: Regular. Extremities: Show no significant clubbing, cyanosis, or edema. NEUROLOGIC: She has a left 6th nerve palsy when looking toward the extreme left. She has side-to-si de double vision, which the outer image goes away when the left eye is covered. Also when looking th rough the left and the right eye is covered, the inner image goes away. When looking to the extreme right, she has resolved diplopia. Diplopia is also present on primary vision straight ahead. She bailey s no motor deficits in the upper and lower extremities. Mild stocking-glove loss to light touch and temperature. Depressed reflexes of upper and lower extremities. Coordination intact. Gait has good stance and stride. Assessment: Ms. 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 She potentially has diabetes mellitus. She does have some slightly elevated blood sugars around 14 5 and may be related to that. However, thyroid issues may require ruling out. There is a slight pos sibility of a paraneoplastic syndrome contributing to the patient's symptoms. There is no evidence o f a stroke on MRI. No evidence of any systemic infection. Plan: May consider steroids, although the patient may have potential diabetes mellitus that may have to be considered carefully. Methotrexate may also be considered short-term. Her symptoms should li alee resolve over a few days to few weeks. All comorbid conditions should continue with management p er Dr. Dowling. In terms of a plan as noted, the patient may be treated with a course of steroids like a Medrol Dosepak or methotrexate. She may after discharge followup in Dr. Contreras's clinic within a month and continue aspirin, Plavix, and likely folic acid and statin for stroke risk reduction. PABLITO/MITRA Voice ID: [id number] Report ID: [id number]
== END 2024-12-11 15:10 | disposition home or self-care (01) ==
LOC: ER 15:52 → ERHOLD 20:54 → 3RD-ICU 12-11 07:39
PROVIDERS: ADMIT Internal Medicine; ATTEND Internal Medicine
DX: H53.2 Diplopia (principal); I10 Essential (primary) hypertension; I48.11 Longstanding persistent atrial fibrillation; E03.9 Hypothyroidism, unspecified
CPT/HCPCS: 93005; 85025 ×2; 80048; 36415; 85610; 85730; 84484; 80053; 70450; 70496; 70498; 71045; 70551; 96375; 96374; 99285; Q9967; J0360; J2765; J1200; G0378 ×4